=== PATIENT | female | born 1970 | race Two or more races ===

== ENCOUNTER 2018-09-23 09:27 | Outpatient (CLI) | payer OTHER | END 2018-09-23 18:38 | disposition home or self-care (01) | LOC: LAB 09:27 | DX: Z11.3 Encounter for screening for infections with a predominantly sexual mode of transmission (principal) ==

== ENCOUNTER 2019-04-14 07:46 | Outpatient (CLI) | payer OTHER | END 2019-04-14 07:52 | disposition home or self-care (01) | LOC: LAB 07:46 | DX: D64.89 Other specified anemias (principal) ==

== ENCOUNTER 2019-08-19 09:15 | Outpatient (CLI) | payer OTHER | END 2019-08-19 15:00 | disposition home or self-care (01) | LOC: LAB 09:15 | DX: J11.1 Influenza due to unidentified influenza virus with other respiratory manifestations (principal) ==

== ENCOUNTER 2019-10-14 08:05 | Inpatient (IN) | payer OTHER ==
[~2019-10-14] VITALS: Ht 157.5 cm; Wt 87.1 kg
[2019-10-28] MEDS ORDERED: UNISOM25 MG PO (08:57)
[2019-11-05] MEDS ORDERED: TYLENOL #3 PO (08:44)
== END 2019-11-05 09:14 | disposition home or self-care (01) | DRG 743 ==
LOC: O/R 11-04 05:15 → OB/GYN 11-04 07:30 → SURG 11-04 07:30 → OB/GYN 11-04 08:45
PROVIDERS: ADMIT Obstetrics & Gynecology
PROC: 0UT27ZZ Resection of Bilateral Ovaries, Via Natural or Artificial Opening (ICD-10-PCS; 2019-11-04)
PROC: 0USG7ZZ Reposition Vagina, Via Natural or Artificial Opening (ICD-10-PCS; 2019-11-04)
PROC: 0UT97ZZ Resection of Uterus, Via Natural or Artificial Opening (ICD-10-PCS; principal; 2019-11-04 08:45)
DX: D25.1 Intramural leiomyoma of uterus (principal); N83.292 Other ovarian cyst, left side; N83.291 Other ovarian cyst, right side; N84.0 Polyp of corpus uteri; N92.0 Excessive and frequent menstruation with regular cycle; N81.11 Cystocele, midline; N72 Inflammatory disease of cervix uteri

== ENCOUNTER 2020-08-10 09:22 | Outpatient (CLI) | payer OTHER ==
[~2020-08-10 09:22] MED LIST: TYLENOL #3 PO; UNISOM25 MG PO
== END 2020-08-10 15:45 | disposition home or self-care (01) ==
LOC: PPH VACUNA 09:22 → LAB 09:22
DX: Z23 Encounter for immunization (principal)

== ENCOUNTER 2021-07-09 07:05 | Outpatient (CLI) | payer OTHER | END 2021-07-09 15:00 | disposition home or self-care (01) | LOC: LAB 07:05 | PROVIDERS: ATTEND Emergency Medicine Pediatric Emergency Medicine | DX: Z03.818 Encounter for observation for suspected exposure to other biological agents ruled out (principal) ==

== ENCOUNTER 2021-08-21 11:16 | Outpatient (CLI) | payer OTHER | END 2021-08-21 12:16 | disposition home or self-care (01) | LOC: PPH VACUNA 11:16 | PROVIDERS: ATTEND Emergency Medicine Pediatric Emergency Medicine | DX: Z23 Encounter for immunization (principal) ==

== ENCOUNTER 2023-07-24 | Outpatient (CLI) | payer OTHER | END 2023-07-24 00:15 | disposition home or self-care (01) | LOC: PPH VACUNA | PROVIDERS: ATTEND Emergency Medicine Pediatric Emergency Medicine | DX: Z23 Encounter for immunization (principal) | CPT/HCPCS: 90636; G0008 ==

== ENCOUNTER 2023-12-17 07:20 | Emergency (ER) | payer OTHER ==
[~2023-12-17] VITALS: Ht 157.5 cm; Wt 86.2 kg
[2023-12-17] MEDS ORDERED: AMOX-CLAV 875-1 EACH PO (08:38)
== END 2023-12-17 09:00 | disposition home or self-care (01) ==
LOC: ER 07:20
DX: N61.1 Abscess of the breast and nipple (principal)